=== PATIENT | male | born 1960 | race Caucasian/White ===

== ENCOUNTER 2017-02-27 13:53 | Day surgery (SDC) | payer BC ==
[~2017-02-27] VITALS: Ht 182.9 cm; Wt 111.4 kg
[2017-02-27 13:45] VITALS: BP 139/99
[2017-02-27] MEDS ORDERED: MIDAZolam 1mg/ml 10ml vial ONE (13:58)
[2017-02-27] MEDS ORDERED: fentaNYL/PF 50MCG/1 ML 2ML syringe ONE ×2 (13:58→15:08)
[2017-02-27] MEDS ORDERED: METF10002 PO (14:45)
[2017-02-27] MEDS ORDERED: PERCOCET PO (14:45)
[2017-02-27] MEDS ORDERED: GLYBURIDE PO (14:46)
[2017-02-27] MEDS ORDERED: THYR30TA2 PO (14:47)
[2017-02-27 15:17] VITALS: BP 128/91
[2017-02-27 15:27] VITALS: BP 122/86
[2017-02-27 15:37] VITALS: BP 137/87
== END 2017-02-27 16:00 | disposition home or self-care (01) ==
LOC: GI LAB 13:53
PROVIDERS: ATTEND Internal Medicine Gastroenterology
DX: D12.2 Benign neoplasm of ascending colon (principal); K57.30 Diverticulosis of large intestine without perforation or abscess without bleeding; K64.8 Other hemorrhoids; Z79.84 Long term (current) use of oral hypoglycemic drugs; Z79.899 Other long term (current) drug therapy
CPT/HCPCS: 45385; 99152; 99153; J2250; J3010; J7030; A4620; G0500